=== PATIENT | female | born 1990 | race Caucasian/White ===

== ENCOUNTER 2020-08-08 13:06 | Emergency (ER) | payer OTHER ==
[~2020-08-08] VITALS: Ht 157.5 cm; Wt 59.0 kg
[2020-08-08 13:10] VITALS: BP 147/81
== END 2020-08-08 13:45 | disposition home or self-care (01) ==
LOC: ER 13:11
DX: Z20.828 Contact with and (suspected) exposure to other viral communicable diseases (principal)
CPT/HCPCS: 87426; 99283; C9803; U0003